=== PATIENT | female | born 1985 | race Caucasian/White ===

== ENCOUNTER 2020-04-21 20:23 | Emergency (ER) | payer MEDICAID, OTHER ==
[~2020-04-21] VITALS: Ht 157 cm; Wt 60.0 kg
[2020-04-21] MEDS ORDERED: CLINDAMYCIN 600 MG/4ML (CLEOCIN) VIAL IM ONE (20:45)
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
[2020-04-21] MEDS ORDERED: CLIN300C11 PO (20:52)
[2020-04-21] MEDS ORDERED: CLINDAMYCIN 300 MG/2ML (CLEOCIN) VIAL ONE (20:54)
[2020-04-21] MEDS ORDERED: CLINDAMYCIN 300 MG/2ML (CLEOCIN) VIAL IM ONE ×2 (21:00)
[2020-04-21 21:02] VITALS: BP 121/61
== END 2020-04-21 21:03 | disposition home or self-care (01) ==
LOC: ER 20:24
DX: L03.211 Cellulitis of face (principal); F17.210 Nicotine dependence, cigarettes, uncomplicated; Z88.6 Allergy status to analgesic agent; Z88.8 Allergy status to other drugs, medicaments and biological substances
CPT/HCPCS: 99284

== ENCOUNTER 2020-08-01 14:43 | Emergency (ER) | payer MEDICAID ==
[~2020-08-01] VITALS: Ht 162.5 cm; Wt 54.4 kg
[~2020-08-01 14:43] MED LIST: CLIN300C11 PO
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
[2020-08-01] MEDS ORDERED: METHOCARBAMOL 750 MG (ROBAXIN) TAB PO ONE (15:15)
[2020-08-01] MEDS ORDERED: IBUPROFEN TABLET 200 MG TAB PO ONE (15:15)
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
[2020-08-01 16:05] VITALS: BP 115/80
== END 2020-08-01 16:10 | disposition home or self-care (01) ==
LOC: EDUNIT# 14:43 → ER 14:46
DX: S00.83XA Contusion of other part of head, initial encounter (principal); S70.01XA Contusion of right hip, initial encounter; Y07.01 Husband, perpetrator of maltreatment and neglect; Y04.8XXA Assault by other bodily force, initial encounter; Z88.6 Allergy status to analgesic agent; Z88.8 Allergy status to other drugs, medicaments and biological substances; Z77.22 Contact with and (suspected) exposure to environmental tobacco smoke (acute) (chronic); Z32.02 Encounter for pregnancy test, result negative
CPT/HCPCS: 70450; 72040; 72170; 84703